=== PATIENT | male | born 1955 | race Caucasian/White ===

== ENCOUNTER 2024-02-03 02:27 | Observation (INO) | payer OTHER ==
[2024-02-03] MEDS ORDERED: AZITHROMYCIN 500 MG INJ IVPB ONE (03:26)
[2024-02-03] MEDS ORDERED: ALBUTEROL 2.5 MG/3 ML NEB SOL ONE (03:26)
[2024-02-03] MEDS ORDERED: NA CHLORIDE 0.9% 250 ML ONE (03:26)
[2024-02-03] MEDS ORDERED: METHYLPREDNISOLONE 125 MG INJ ONE (03:26)
[2024-02-03] MEDS ORDERED: IPRATROPIUM BROM 0.5MG/2.5ML ONE (03:26)
[2024-02-03] MEDS ORDERED: CEFTRIAXONE 1000 MG/VIAL ONE (03:26)
[2024-02-03] MEDS ORDERED: NA CHLORIDE 0.9% 100 ML ONE (03:27)
[2024-02-03 03:36] LABS: Absolute Basophils 0.1 K/uL (0-0.5); Absolute Eosinophils 0.1 K/uL (0-0.5); Absolute Lymphocytes (CBC) 1.7 K/uL (0.7-4.9); Absolute Monocytes 1.5 K/uL (0.1-1.3); Absolute Neutrophil 7.3 K/uL (1.8-8.0); Basophils % 0.9 % (0-1.3); Eosinophils % 0.6 % (0-4.4); Hematocrit 48.5 % (39.6-49.0); Lymphocytes % 15.9 % (15.3-44.8); MPV 8.3 fL (7.6-11.3); Monocytes % 13.8 % (3.3-12.3); Neutrophils % 68.8 % (41.7-73.7); Platelets 215 thou/uL (152-406); RBC Red Blood Cell Count 5.51 M/uL (4.33-5.43); Red Cell Distribution Width 16.6 % (12.1-15.2)
[2024-02-03 03:55] LABS: Albumin 3.5 g/dL (3.4-5.0); Albumin/Globulin Ratio 0.9 (1.1-1.8); Bilirubin Direct 0.1 mg/dL (0-0.2); Bilirubin Indirect, Calculated 0.2 mg/dL (0.2-0.8); Bilirubin Total 0.3 mg/dL (0.2-1.0); Globulin 3.7 g/dL (2.3-3.5); Protein, Total 7.2 g/dL (6.4-8.2); Troponin High Sensitivity 34.6 pg/mL (<58.9)
[2024-02-03 04:00] LABS: SARS-CoV-2 Antigen CONTROL BLUE LINE VIS/BG OK; SARS-CoV-2 Antigen Rapid Res Positive (Negative)
--- NOTE | 2024-02-03 04:25 | EDPHYS ---
Physician Documentation [facility] Name: Joey Betts Age: 68 yrs Sex: Male : 1955 Arrival Date: 02/03/2024 Time: 02:27 Bed 18 Private MD: ED Physician Chato Dos Santos HPI: 02/02 02:56 This 68 yrs old Male presents to ER via Ambulatory with complaints of ec2 Shortness Of Breath, Cough, Chest Congestion, Fever. 02:56 Patient arrives today for evaluation of shortness of breath. Patient reports several ec2 days of worsening shortness of breath along with productive sputum. Patient reports no nausea or vomiting, no fevers or chills, does report body aches as well as cough and congestion. Reports history of CHF, is intermittently on a diuretic.. Historical: - Allergies: 02:35 No Known Allergies; jw7 - Home Meds: 02:35 Xarelto oral [Active]; clopidogrel oral [Active]; lisinopril 40 mg Oral tablet jw7 [Active]; rosuvastatin oral [Active]; - PMHx: 02:35 Hypertensive disorder; CVA; [place]; jw7 - PSHx: 02:35 Cardiac Stent; jw7 - Immunization history:: Adult Immunizations up to date, Client reports receiving the 2nd dose of the Covid vaccine, Pneumococcal vaccine is not up to date, Flu vaccine is not up to date. - Social history:: Smoking status: Patient reports the use of cigarette tobacco products, smokes one pack cigarettes per day. Patient uses alcohol, but reports only rare drinking. Patient/guardian denies using street drugs, IV drugs. ROS: 02:56 Constitutional: as per hpi ec2 Exam: 02:56 Constitutional: GEN: NAD Head: atraumatic Eyes: EOMI Ears: External ears are ec2 normal. CV: regular rate LUNGS: Scattered rales noted throughout all lung ac, scattered wheezes noted as well ABD: non-distended SKIN: no evidence of rashes MSK: no evidence of trauma NEURO: moves all extremities equally Vital Signs: 02:35 BP 120 / 73; Pulse 66; Resp 20 S; Temp 98(TE); Pulse Ox 93% on R/A; Weight 111.13 kg; jw7 Height 6 ft. 1 in. ; Pain 0/10; 03:30 BP 110 / 67; Pulse 63; Resp 20 S; Pulse Ox 98% on 2 lpm NC; jw7 04:30 BP 120 / 46; Pulse 67; Resp 18 S; Pulse Ox 98% on 2 lpm NC; jw7 05:30 BP 115 / 63; Pulse 69; Resp 26 S; Pulse Ox 92% on 2 lpm NC; jw7 06:20 BP 108 / 65; Pulse 70; Resp 14 S; Pulse Ox 96% on 2 lpm NC; jw7 02:35 Body Mass Index 32.32 (111.13 kg, 185.42 cm) jw7 02:35 Pain Scale: Adult jw7 MDM: 02:47 Patient medically screened. ec2 02:56 Data reviewed: vital signs. ED course: Patient arrives today for shortness of breath. ec2 Examination remarkable for individual who has scattered wheezes as well as rales noted throughout all lung ac. Will obtain lab work including EKG, chest x-ray, give the patient a DuoNeb, steroids and antibiotics. On initial evaluation, patient is insisting to obtain significant workup however given his scattered rales and wheezing my concern is for possible COPD exacerbation, pneumonia and instructed will be best to continue with workup which may lead to possible admission as well, patient begrudgingly agreed. 04:15 ED course: Metabolic profile reassuring, CBC without leukocytosis. BNP minimally ec2 elevated at 290. Patient is COVID-positive, troponin within normal ranges. Flu testing negative. . 04:23 ED course: On reassessment patient still remains uncomfortable appearing and short of ec2 breath, will admit for shortness of breath and COVID-positive. Discussed case with hospitalist, pending admission.. 03 02:54 Order name: Basic Metabolic Panel; Complete Time: 04:15 ec2 02/02 02:54 Order name: CBC with Diff; Complete Time: 04:15 ec2 02/02 02:54 Order name: NT PRO-BNP; Complete Time: 04:15 ec2 02/02 02:54 Order name: Troponin HS; Complete Time: 04:15 ec2 02/02 02:54 Order name: LFT's; Complete Time: 04:15 ec2 02/02 02:54 Order name: Influenza Screen (a \T\ B); Complete Time: 04:15 ec2 02/02 02:54 Order name: SARS RAPID; Complete Time: 04:15 ec2 02/02 05:21 Order name: C-Reactive Protein EDMS 02/02 05:21 Order name: C-Reactive Protein EDMS 02/02 05:21 Order name: C-Reactive Protein EDMS 02/02 05:21 Order name: C-Reactive Protein EDMS 02/02 05:21 Order name: CBC with Automated Diff EDMS 02/02 05:21 Order name: CBC with Automated Diff EDMS 02/02 05:21 Order name: Comprehensive Metabolic Panel EDMS 02/02 05:21 Order name: Comprehensive Metabolic Panel EDMS 02/02 05:21 Order name: Lipid Profile EDMS 02/02 05:21 Order name: Lipid Profile EDMS 02/02 05:21 Order name: Magnesium EDMS 02/02 05:21 Order name: Magnesium EDMS 02/02 05:21 Order name: Phosphorus EDMS 02/02 05:21 Order name: Phosphorus EDMS 02/02 02:54 Order name: XRAY Chest (1 view) ec2 02/02 02:54 Order name: EKG; Complete Time: 02:55 ec2 02/02 02:54 Order name: Cardiac monitoring; Complete Time: 03:01 ec2 02/02 02:54 Order name: EKG - Nurse/Tech; Complete Time: 03:01 ec2 02/02 02:54 Order name: IV Saline Lock; Complete Time: 03:18 ec2 02/02 02:54 Order name: Labs collected and sent; Complete Time: 03:18 ec2 02/02 02:54 Order name: O2 Per Protocol; Complete Time: 03:01 ec2 02/02 02:54 Order name: O2 Sat Monitoring; Complete Time: 03:01 ec2 Administered Medications: 03:47 Drug: MethylPrednisoLONE IVP 125 mg IVP once Route: IVP; Site: right forearm; jw7 05:35 Follow up: Response: No adverse reaction jw7 03:47 Drug: Rocephin IV 1 grams IV at calculated rate once; Given slow IV push per pharmacy jw7 instructions Route: IV; Rate: calculated rate; Site: right forearm; 05:35 Follow up: Response: No adverse reaction; IV Status: Completed infusion; IV Intake: jw7 100ml 03:47 Drug: DuoNeb Nebulize (3:1) (2.5 mg - 0.5 mg) 3 ml Nebulizer once Route: Nebulizer; jw7 05:35 Follow up: Response: No adverse reaction; Marked relief of symptoms jw7 04:00 Drug: AZITHromycin IVPB 500 mg IVPB once over 1 hrs; (mix in 250 mL NS) Route: IVPB; jw7 Infused Over: 1 hrs; Site: right forearm; 05:36 Follow up: Response: No adverse reaction; IV Status: Completed infusion; IV Intake: jw7 250ml Disposition Summary: 02/03/24 04:24 Hospitalization Ordered Notes: Hospitalization Status: Inpatient Admission ec2 Provider: Norm Blank ec2 [facility] ec[facility] Condition: Stable ec2 Problem: new ec2 Symptoms: have improved ec2 Bed/Room Type: Standard ec2 Room Assignment: [facility](02/03/24 05:17) kl Diagnosis - SARS-associated coronavirus as the cause of diseases classified elsewhere ec2 - Dyspnea, unspecified ec2 Forms: - Medication Reconciliation Form ec2 - SBAR form ec2 - Leadership Thank You Letter ec2 Signatures: Dispatcher [employer] Maye Edmondson RN RN Shonna Bolaños RN RN jwChato Hdez MD MD ec2 Corrections: (The following items were deleted from the chart) 05:17 04:24 ec2 kl
--- NOTE | 2024-02-03 04:25 | ER ---
Nurse's Notes [facility] Name: Joey Betts Age: 68 yrs Sex: Male : 1955 Arrival Date: 02/03/2024 Time: 02:27 Bed 18 Private MD: Diagnosis: SARS-associated coronavirus as the cause of diseases classified elsewhere;Dyspnea, unspecified Presentation: 02/02 02:35 Chief complaint: Patient states: I started having cough and congestion a couple days jw7 ago, now I've been real short of breath and I had a 101 fever last night. 02:35 Coronavirus screen: At this time, the client does not indicate any symptoms associated jw7 with coronavirus-19. Ebola Screen: No symptoms or risks identified at this time. Initial Sepsis Screen: Does the patient meet any 2 criteria? No. Patient's initial sepsis screen is negative. Does the patient have a suspected source of infection? No. Patient's initial sepsis screen is negative. Risk Assessment: Do you want to hurt yourself or someone else? Patient reports no desire to harm self or others. Onset of symptoms was February 01, 2024. Care prior to arrival: Medication(s) given: Tylenol, 1000 mg. 02:35 Method Of Arrival: Ambulatory [facility] 02:35 Acuity: JAMES 3 jw7 Triage Assessment: 02:35 General: Appears in no apparent distress. uncomfortable, ill, Behavior is calm, jw7 cooperative. Pain: Denies pain. EENT: No deficits noted. No signs and/or symptoms were reported regarding the EENT system. Neuro: Level of Consciousness is awake, alert, obeys commands, Oriented to person, place, time, situation. Cardiovascular: Heart tones S1 S2 present Capillary refill < 3 seconds Clubbing of nail beds is absent JVD is absent Patient's skin is warm and dry. Respiratory: Reports shortness of breath at rest on exertion cough that is productive, Airway is patent Trachea midline Respiratory effort is even, unlabored, Respiratory pattern is regular, symmetrical, Breath sounds with crackles bilaterally. Onset: The symptoms/episode began/occurred gradually, the patient has moderate shortness of breath. GI: Abdomen is round non-distended, Bowel sounds present X 4 quads. Abd is soft and non tender X 4 quads. : No deficits noted. No signs and/or symptoms were reported regarding the genitourinary system. Derm: Skin is intact, is healthy with good turgor, Skin is dry, Skin is normal, Skin temperature is warm. Musculoskeletal: Circulation, motion, and sensation intact. Range of motion: intact in all extremities. Historical: - Allergies: :35 No Known Allergies; jw7 - Home Meds: :35 Xarelto oral [Active]; clopidogrel oral [Active]; lisinopril 40 mg Oral tablet jw7 [Active]; rosuvastatin oral [Active]; - PMHx: :35 Hypertensive disorder; CVA; [place]; jw7 - PSHx: :35 Cardiac Stent; jw7 - Immunization history:: Adult Immunizations up to date, Client reports receiving the 2nd dose of the Covid vaccine, Pneumococcal vaccine is not up to date, Flu vaccine is not up to date. - Social history:: Smoking status: Patient reports the use of cigarette tobacco products, smokes one pack cigarettes per day. Patient uses alcohol, but reports only rare drinking. Patient/guardian denies using street drugs, IV drugs. Screenin:35 Abuse screen: Denies threats or abuse. Denies injuries from another. jw7 02:35 [facility] ED Fall Risk Assessment (Adult) History of falling in the last 3 months, jw7 including since admission No falls in past 3 months (0 pts) Confusion or Disorientation No (0 pts) Intoxicated or Sedated No (0 pts) Impaired Gait Yes (1 pt) Mobility Assist Device Used No (0 pt) Altered Elimination No (0 pt) Score/Fall Risk Level 0 - 2 = Low Risk Oriented to surroundings, Maintained a safe environment, Educated pt \T\ family on fall prevention, incl call for assistance when getting out of bed. Nutritional screening: No deficits noted. Tuberculosis screening: No symptoms or risk factors identified. Assessment: 02:30 General: See Triage Assessment. jw7 02:30 Cardiovascular: Rhythm is sinus rhythm. jw7 03:30 Reassessment: Patient appears in no apparent distress at this time. No changes from jw7 previously documented assessment. Patient and/or family updated on plan of care and expected duration. Pain level reassessed. Patient is alert, oriented x 3, equal unlabored respirations, skin warm/dry/pink. 04:30 Reassessment: Patient appears in no apparent distress at this time. No changes from jw7 previously documented assessment. Patient and/or family updated on plan of care and expected duration. Pain level reassessed. Patient is alert, oriented x 3, equal unlabored respirations, skin warm/dry/pink. 05:30 Reassessment: Patient appears in no apparent distress at this time. No changes from jw7 previously documented assessment. Patient and/or family updated on plan of care and expected duration. Pain level reassessed. Patient is alert, oriented x 3, equal unlabored respirations, skin warm/dry/pink. 06:20 Reassessment: Patient appears in no apparent distress at this time. No changes from jw7 previously documented assessment. Patient and/or family updated on plan of care and expected duration. Pain level reassessed. Patient is alert, oriented x 3, equal unlabored respirations, skin warm/dry/pink. Vital Signs: 02:35 BP 120 / 73; Pulse 66; Resp 20 S; Temp 98(TE); Pulse Ox 93% on R/A; Weight 111.13 kg; jw7 Height 6 ft. 1 in. ; Pain 0/10; 03:30 BP 110 / 67; Pulse 63; Resp 20 S; Pulse Ox 98% on 2 lpm NC; jw7 04:30 BP 120 / 46; Pulse 67; Resp 18 S; Pulse Ox 98% on 2 lpm NC; jw7 05:30 BP 115 / 63; Pulse 69; Resp 26 S; Pulse Ox 92% on 2 lpm NC; jw7 06:20 BP 108 / 65; Pulse 70; Resp 14 S; Pulse Ox 96% on 2 lpm NC; jw7 02:35 Body Mass Index 32.32 (111.13 kg, 185.42 cm) jw7 02:35 Pain Scale: Adult jw7 ED Course: 02:31 Patient arrived in ED. gm2 02:35 Arm band placed on. jw7 02:35 Patient has correct armband on for positive identification. Bed in low position. Call jw7 light in reach. Provided Education on: Use of Call Light. 02:47 Chato Dos Santos MD is Attending Physician. ec2 02:49 Shonna Bella, CANDIDO is Primary Nurse. jw7 02:53 Triage completed. jw7 03:06 XRAY Chest (1 view) In Process Unspecified. EDMS 03:18 Initial lab(s) drawn, by me, sent to lab. COVID swab sent to lab. Flu and/or RSV swab jw7 sent to lab. Inserted saline lock: 22 gauge in right forearm, using aseptic technique. Blood collected. 04:24 Norm Blank is Hospitalizing Provider. ec2 05:33 No provider procedures requiring assistance completed. jw7 05:49 Patient admitted, IV remains in place. jw7 Administered Medications: 03:47 Drug: MethylPrednisoLONE IVP 125 mg IVP once Route: IVP; Site: right forearm; jw7 05:35 Follow up: Response: No adverse reaction jw7 03:47 Drug: Rocephin IV 1 grams IV at calculated rate once; Given slow IV push per pharmacy jw7 instructions Route: IV; Rate: calculated rate; Site: right forearm; 05:35 Follow up: Response: No adverse reaction; IV Status: Completed infusion; IV Intake: jw7 100ml 03:47 Drug: DuoNeb Nebulize (3:1) (2.5 mg - 0.5 mg) 3 ml Nebulizer once Route: Nebulizer; jw7 05:35 Follow up: Response: No adverse reaction; Marked relief of symptoms jw7 04:00 Drug: AZITHromycin IVPB 500 mg IVPB once over 1 hrs; (mix in 250 mL NS) Route: IVPB; jw7 Infused Over: 1 hrs; Site: right forearm; 05:36 Follow up: Response: No adverse reaction; IV Status: Completed infusion; IV Intake: jw7 250ml Medication: 05:33 VIS not applicable for this client. jw7 Intake: 05:35 IV: 100ml; Total: 100ml. jw7 05:36 IV: 250ml; Total: 350ml. jw7 Outcome: 04:24 Decision to Hospitalize by Provider. ec2 05:49 Admitted to Tele accompanied by tech, via wheelchair, room 417, with oxygen, Report jw7 called to CANDIDO Gil 05:49 Condition: stable 05:49 Instructed on the need for admit, Demonstrated understanding of instructions, 06:25 Patient left the ED. jw7 Signatures: Dispatcher [employer] Shonna Richards RN RN jw7 Chato Dos Santos MD MD ec2 Beatriz Rodriguez gm2 Corrections: (The following items were deleted from the chart) 06:41 06:38 Patient admitted, IV remains in place. jw7 jw7 06:41 06:38 Reassessment: Patient appears in no apparent distress at this time. No changes jw7 from previously documented assessment. Patient and/or family updated on plan of care and expected duration. Pain level reassessed. Patient is alert, oriented x 3, equal unlabored respirations, skin warm/dry/pink. jw7 06:37 Condition: stable jw7 7 06:37 Admitted to Tele accompanied by brenda, via wheelchair, room 417, with oxygen, jw7 Report called to CANDIDO Gil 7 06:37 Instructed on the need for admit, Demonstrated understanding of instructions, jw7 7 :41 06:39 Patient left the ED. jw7 7 : 06:38 BP 108 / 65; Pulse 70bpm; Resp 14bpm; Spontaneous; Pulse Ox 96% 2 lpm Nasal jw7 Cannula; jw7
[2024-02-03] MEDS ORDERED: ONDANSETRON 4 MG/2 ML VIAL IV PRN (05:13)
[2024-02-03] MEDS ORDERED: ALBUTEROL INHALER 200 PUFF/6.7 GM IH PRN (05:13)
[2024-02-03] MEDS ORDERED: ACETAMINOPHEN 325 MG TABLET PO PRN (05:13)
--- NOTE | 2024-02-03 05:25 | P.HP ---
Certification for Inpatient Patient admitted to: Observation With expected LOS: <2 Midnights Practitioner: I am a practitioner with admitting privileges, knowledge of patient current condition, hospital course, and medical plan of care. Services: Services provided to patient in accordance with Admission requirements found in Title 42 Section 412.3 of the Code of Federal Regulations Patient History Date of Service: 02/03/24 Reason for admission: Cough and shortness of breath History of Present Illness: 68-year-old gentleman with a history of TIA on Xarelto anticoagulation presented to the emergency department with a complaint of progressive cough and shortness of breath of a few days duration. Patient stated he started experiencing flulike symptoms with nasal congestion and fever, and then developed nonproductive cough and shortness of breath. His symptoms became worse last night and therefore presented to the emergency department for evaluation. Patient tested positive for COVID-19 in the ED. Chest x-ray did not show any acute infiltrate. Patient has no leukocytosis and does not meet criteria for sepsis. No hypoxia recorded. Patient is hospitalized for further management. - Past Medical/Surgical History -: TIA -: Hypertension -: [place] -: Cardiac stent - Family History Family History: Reviewed- Non-Contributory - Social History Smoking Status: Current every day smoker Alcohol use: Yes CD- Drugs: No Place of Residence: Home Review of Systems Other: Patient denies any chest pain, denies any any abdominal pain, denies any diarrhea. Except as documented, all other systems reviewed and negative. Physical Examination - Physical Exam General: Alert, In no apparent distress, Oriented x3 HEENT: Atraumatic, Mucous membr. moist/pink, Sclerae nonicteric Neck: Supple, JVD not distended Respiratory: Normal air movement, Crackles/rales (Right lung) Cardiovascular: No edema, Regular rate/rhythm, Normal S1 S2 Capillary refill: <2 Seconds Gastrointestinal: Normal bowel sounds, Soft and benign, Non-distended, No tenderness Musculoskeletal: No swelling, No tenderness Integumentary: No rashes, No erythema, No cyanosis Neurological: Normal speech, Normal strength at 5/5 x4 extr, Cranial nerves 3-12 intact Lymphatics: No axilla or inguinal lymphadenopathy - Studies Laboratory Data (last 24 hrs) 02/03/24 02/03/24 03:14 03:14 WBC 10.60 Hgb 16.0 Hct 48.5 Plt Count 215 Sodium 138 Potassium 4.0 BUN 21 H Creatinine 1.16 Glucose 97 Total Bilirubin 0.3 AST 33 ALT 42 Alkaline Phosphatase 82 Microbiology Data (last 24 hrs): 02/03/24 03:14 Nasopharnyx Influenza Type A Antigen Screen - Final 02/03/24 03:14 Nasopharnyx Influenza Type B Antigen Screen - Final Assessment and Plan - Problems (Diagnosis) (1) COVID-19 virus infection Current Visit: Yes Status: Acute (2) History of TIA (transient ischemic attack) Current Visit: Yes Status: Acute (3) Coronary artery disease Current Visit: Yes Status: Acute - Plan Place patient under observation. Supportive treatment for COVID-19 infection IV steroid Bronchodilator treatment Empiric IV Rocephin Supplemental oxygen as needed. Monitor inflammatory markers. Continue home dose Xarelto. Reconcile and continue other home medications. - Advance Directives Does patient have a Living Will: No Does patient have a Durable POA for Healthcare: No
[2024-02-03] MEDS: Levofloxacin500mg IV 500 MG/100 ML BAG IV SCH (06:41)
--- NOTE | 2024-02-03 07:20 | P.PN ---
Date of Service: 02/03/24 Subjective: Feeling better today Breathing feels easier today wanting to go home no acute events overnight afebrile ROS: 10 point ROS as noted above, otherwise negative Physical Exam: GEN: Alert, oriented, NAD HEENT: Normal conjunctiva, sclera anicteric CV: Regular rate and rhythm, no edema Pulm: Nonlabored respirations on 3L NC, diminished at bases b/l, +crackles/rales ABD: Soft, nontender, nondistended Neuro: Normal speech, normal affect vitals reviewed Problem List: Covid-19 Infection hx of prior TIA/GA hx of CAD, s/p PCI Hypertension Covid-19 Infection Reports flulike symptoms - nasal congestion, fever, cough, SOB, over past few days tested positive for Covid in ED CXR negative for any acute infiltrate continue IV steroids PRN nebs Continue empiric IV levaquin (02/02-) PRN analgesics / antiemetics wean oxygen as tolerated hx of prior TIA/GA hx of CAD, s/p PCI confirm home meds, restart as appropriate Takes xarelto at home Hypertension confirm home meds, restart as appropriate VTE: Resume home xarelto Code: Full Dispo: Home, ~1 day pending off oxygen
[2024-02-03] MEDS: FAMOTIDINE 20 MG/2 ML VIAL IV SCH (08:39)
[2024-02-03] MEDS: METHYLPREDNISOLONE 40 MG INJ IV SCH (08:39)
[2024-02-03 11:12] VITALS: O2SAT 92; BMI 31.6
--- NOTE | 2024-02-03 11:21 | RAD REPORT ---
EXAM DESCRIPTION: RAD - Chest Single View - 02/03/2024 3:04 am CLINICAL HISTORY: Cough;Dyspnea COMPARISON: None FINDINGS: Cardiac silhouette is within normal limits. There is no focal parenchymal or pleural disea se. There is no acute osseous process visualized. IMPRESSION: No evidence of acute cardiopulmonary disease. Electronically signed by: De Yun MD 02/03/2024 03:35 AM CDT Due to temporary technical issues with the PACS/Fluency reporting system, reports are being signed by the in house radiologists without review as a courtesy to insure prompt reporting. The interpreting radiologist is fully responsible for the content of the report.
[2024-02-03 16:47] VITALS: BP 158/96; TEMP 97.1
--- NOTE | 2024-02-03 17:02 | EKG ---
Test Date: 2024-02-03 Test Time: 03:00:35 [place] Laborer: EMMETT MEASUREMENT RESULTS: Intervals: Rate: 65 TN: 142 QRSD: 152 QT: 456 QTc: 474 [place]: P: 31 TN: 142 QRS: -73 T: 82 INTERPRETIVE STATEMENTS: Normal sinus rhythm Left axis deviation Right bundle branch block Anteroseptal infarct, age undetermined Abnormal ECG No previous ECG available for comparison Electronically Signed On 02-03-24 16:59:54 CDT by Vadim Herrmann
--- NOTE | 2024-02-04 06:43 | P.DS ---
Admission Date: 02/03/24 Discharge Date: 02/03/24 Disposition: ROUTINE DISCHARGE Discharge Condition: GOOD Reason for Admission: Cough and shortness of breath Brief History of Present Illness: 68yo M, PMH: TIA on Xarelto anticoagulation Patient presented to the emergency department with a complaint of progressive cough and shortness of breath of a few days duration. Patient stated he started experiencing flulike symptoms with nasal congestion and fever, and then developed nonproductive cough and shortness of breath. His symptoms became worse last night and therefore presented to the emergency department for evaluation. Patient tested positive for COVID-19 in the ED. Chest x-ray did not show any acute infiltrate. Patient has no leukocytosis and does not meet criteria for sepsis. No hypoxia recorded. Patient is hospitalized for further management. Hospital Course: Problem List: Covid-19 Infection hx of prior TIA/[place] hx of CAD, s/p PCI Hypertension Patient presented with worsening dyspnea, cough, nasal congestion, fever. Patient was found to be Covid-19 positive in the ED. Chest-xray on admission was negative for any acute findings. Patient received IV steroids, nebs, oxygen supplementation along with a dose of empiric antibiotic (levaquin) and had quick improvement of his symptoms. Patient was feeling better, breathing more comfortably on room air, afebrile, wanting to go home and was deemed stable for discharge. Advised patient to follow up with PCP in ~1 week. Briefly discussed with Pulmonology - Dr. Buchanan, who recommended continuing steroid treatment and prescribing Lagevrio (Molnupiravir). no change in medications previously prescribed. New Medications: Dexamethasone 2mg twice daily x 5 days. Lagevrio (Molnupiravir) 800mg twice daily x 5 days. Follow up: PCP 3-5 days Physical Exam: GEN: Alert, oriented, NAD HEENT: Normal conjunctiva, sclera anicteric CV: Regular rate and rhythm, no edema Pulm: Nonlabored respirations on room air, clear bilaterally ABD: Soft, nontender, nondistended Neuro: Normal speech, normal affect Vital Signs/Physical Exam: Temp Pulse Resp BP Pulse Ox 97.1 F 55 16 158/96 H 16 L 02/03/24 16:00 02/03/24 16:00 02/03/24 16:00 02/03/24 16:00 02/03/24 16:00 Laboratory Data at Discharge: WBC 10.60 thou/uL (4.3-10.9) 02/03/24 03:14 Hgb 16.0 g/dL (13.6-17.9) 02/03/24 03:14 Hct 48.5 % (39.6-49.0) 02/03/24 03:14 Plt Count 215 thou/uL (152-406) 02/03/24 03:14 Sodium 138 mEq/L (136-145) 02/03/24 03:14 Potassium 4.0 mEq/L (3.5-5.1) 02/03/24 03:14 BUN 21 mg/dL (7-18) H 02/03/24 03:14 Creatinine 1.16 mg/dL (0.70-1.30) 02/03/24 03:14 Glucose 97 mg/dL (74-106) 02/03/24 03:14 Total Bilirubin 0.3 mg/dL (0.2-1.0) 02/03/24 03:14 AST 33 U/L (15-37) 02/03/24 03:14 ALT 42 U/L (16-61) 02/03/24 03:14 Alkaline Phosphatase 82 U/L (45-117) 02/03/24 03:14 Home Medications: Molnupiravir [Lagevrio (Eua)] 4 cap PO BID 5 Days #40 cap 02/03/24 dexAMETHasone [Dexamethasone] 1 tab PO BID 5 Days #10 tab 02/03/24 New Medications: dexAMETHasone [Dexamethasone] 1 tab PO BID 5 Days #10 tab Molnupiravir [Lagevrio (Eua)] 4 cap PO BID 5 Days #40 cap Physician Discharge Instructions: Physician Discharge Instructions Patient presented with worsening dyspnea, cough, nasal congestion, fever. Patient was found to be Covid-19 positive in the ED. Chest-xray on admission was negative for any acute findings. Patient received IV steroids, nebs, oxygen supplementation along with a dose of empiric antibiotic (levaquin) and had quick improvement of his symptoms. Patient was feeling better, breathing more comfortably on room air, afebrile, wanting to go home and was deemed stable for discharge. Advised patient to follow up with PCP in ~1 week. Briefly discussed with Pulmonology - Dr. Buchanan, who recommended continuing steroid treatment and prescribing Lagevrio (Molnupiravir). no change in medications previously prescribed. New Medications: Dexamethasone 2mg twice daily x 5 days. Lagevrio (Molnupiravir) 800mg twice daily x 5 days. Follow up: PCP 3-5 days Followup: HiraOTOOT [Primary Care Provider] - Time spent managing pt's care (in minutes): 45
== END 2024-02-03 17:00 | disposition home or self-care (01) ==
LOC: ER 02:27 → 4TH 05:11
PROVIDERS: ADMIT Internal Medicine; ATTEND Hospitalist
DX: U07.1 COVID-19 (principal); R05.9 Cough, unspecified; F17.210 Nicotine dependence, cigarettes, uncomplicated; I25.10 Atherosclerotic heart disease of native coronary artery without angina pectoris; Z86.73 Personal history of transient ischemic attack (TIA), and cerebral infarction without residual deficits
CPT/HCPCS: 93005; 85025; 80048; 36415; 82947; 80076; 84484; 84145; 83880; 87804 ×2; 71045; 87811; J7613; J7644; J2930; J7050; J2920; J0696; G0378